=== PATIENT | male | born 1955 | race Caucasian/White ===

== ENCOUNTER 2017-06-08 09:26 | Outpatient (CLI) ==
[2015-06-07 12:42] VITALS: BMI 48.7
== END 2017-06-08 09:27 | disposition home or self-care (01) ==
LOC: LAB 09:26
PROVIDERS: ATTEND Nurse Practitioner Family
DX: J44.9 Chronic obstructive pulmonary disease, unspecified (principal); I10 Essential (primary) hypertension; E78.5 Hyperlipidemia, unspecified; E55.9 Vitamin D deficiency, unspecified; E66.9 Obesity, unspecified; Z12.5 Encounter for screening for malignant neoplasm of prostate
CPT/HCPCS: 36415; 80053; 80061; 82306; 84443; 85025

== ENCOUNTER 2018-01-15 23:42 | Emergency (ER) ==
[2018-01-15 23:54] VITALS: TEMP 98.9; BMI 44.7
[2018-01-16] MEDS ORDERED: DUONEB NEB STA (00:02)
--- NOTE | 2018-01-16 00:06 | ED.PDOC ---
General ED Provider: Dr. DAPHNE PRETTY Chief Complaint: Shortness of Air Stated Complaint: Patient states he has been short of breath for 3 days. Has a history COPD but quit smoking many years ago. Denies any chest pain. Time Seen by Physician: 00:05 Mode of Arrival: Wheelchair Information Source: Family Exam Limitations: Clinical condition Primary Care Provider: FRANCISCO COOPER Nursing and Triage Documentation Reviewed and Agree: Yes Does patient meet sepsis criteria?: Yes If yes, has appropriate treatment been initiated?: Yes System Inflammatory Response Syndrome: Pulse >90 BPM, Resp >20/Minute Sepsis Protocol: For patient's 13 years and over: Temp is 96.8 and below OR 101 and greater Pulse >90 BPM Resp >20/minute Acutely Altered Mental Status Are patient's symptoms suggestive of a new infection, such as: -Pneumonia -Skin, Soft Tissue -Endocarditis -UTI -Bone, Joint Infection -Implantable Device -Acute Abdominal Infection -Wound Infection -Meningitis -Blood Stream Catheter Infection -Unknown Respiratory Complaint Exam - Shortness of Air Complaint/Exam Onset/Duration: 3 days Symptoms Are: Still present Timing: Constant Initial Severity: Moderate Current Severity: Severe Character: Reports: Dyspnea at rest Aggravating: Reports: Movement Alleviating: Reports: None Associated Signs and Symptoms: Reports: Diaphoresis, Rapid breathing, Labored breathing. Denies: Chest pain, Edema Cardiac Risk Factors: Reports: CAD, Hypertension Home Oxygen Use: No Recent Stress Test: No Respiratory Distress: Moderate Stridor Present: No Tracheal Deviation: No Subcutaneous Emphysema: No Accessory Muscle Use: No Retractions: Not Present Diminished Breath Sounds: No Prolonged Expiratory Phase: No Unable to Speak Full Sentences: Yes Fatigue: No Leg Swelling: No Tamiko's Sign Present: No Grunting Respirations: No Kussmaul Respirations: No Differential Diagnoses: CHF, COPD Exacerbation Quality Indicator For Non-Traumatic Chest Pain/Syncope: EKG Performed Review of Systems - Review Of Systems Constitutional: Reports: Weakness, Loss of appetite Eyes: Reports: No symptoms Ears, Nose, Mouth, Throat: Reports: No symptoms Respiratory: Reports: Short of air Cardiac: Reports: Irregular heart rate, Palpitations. Denies: Chest pain GI: Reports: No symptoms : Reports: No symptoms Musculoskeletal: Reports: No symptoms Skin: Reports: No symptoms Neurological: Reports: Anxiety Endocrine: Reports: No symptoms Hematologic/Lymphatic: Reports: No symptoms All Other Systems: Reviewed and Negative Past Medical History - Past Medical History Previously Healthy: No Endocrine: Reports: None, Dyslipidemia Cardiovascular: Reports: Hypertension Respiratory: Reports: COPD, Asthma Hematological: Reports: None Gastrointestinal: Reports: None Genitourinary: Reports: Kidney stones Neuro/Psych: Reports: Migraine, Other (Neuropathy ) Musculoskeletal: Reports: None, Back Pain Cancer: Reports: None - Surgical History General Surgical History: Reports: Unknown - Family History Family History: Reports: None - Social History Smoking Status: Former smoker (60 pk year ) Hx Substance Use: No Alcohol Screening: None - Immunizations Tetanus Shot up to Date: No Physical Exam - Physical Exam Appearance: Ill-appearing, Obese Ill-appearing: Severe Neck: Supple Respiratory: Crackles Cardiovascular: Irregular rhythm, Tachycardia GI/: Soft, Nontender Musculoskeletal: Normal strength, ROM intact, No edema, No calf tenderness Skin: Warm, Dry, Normal color Neurological: Sensation intact, Motor intact, Cranial nerves intact, Alert, Oriented Psychiatric: Anxious Interpretation - Radiology Interpretation Radiology Interpretation By: Radiologist Radiology Results: Positive (chf) 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 Physician Notification - Case Discussed Physician Notified: Dr Alicea Time of Notification: 01:21 (accepted for transfer to [facility]) Critical Care Note - Critical Care Note Total Time (mins): 45 Comments: managing CHF , Atrial fibrillation with RVR Course - Course Hematology/Chemistry: 01/16/18 00:25 01/16/18 00:25 Orders, Labs, Meds: Lab Review 01/16/18 01/16/18 01/16/18 00:02 00:25 00:25 WBC 18.89 H RBC 4.97 Hgb 15.0 Hct 45.7 MCV 92.0 MCH 30.2 MCHC 32.8 RDW Coeff of Dang 14.8 Plt Count 281 Immature Gran % (Auto) 0.6 Neut % (Auto) 81.6 Lymph % (Auto) 9.2 L [place] % (Auto) 6.8 Eos % (Auto) 1.2 Baso % (Auto) 0.6 Immature Gran # (Auto) 0.1 Neut # (Auto) 15.4 H Lymph # (Auto) 1.7 [place] # (Auto) 1.3 Eos # (Auto) 0.2 Baso # (Auto) 0.1 Puncture Site Lrad O2 Saturation 85.0 L ABG pH 7.396 ABG pCO2 41.7 ABG pO2 51.0 L* ABG HCO3 25.6 ABG Total CO2 27 ABG Base Excess 1 Saul Test + FiO2 % 21.0 Sodium 138.8 Potassium 4.43 Chloride 103.4 Carbon Dioxide 27.4 Anion Gap 12.43 BUN 15.8 Creatinine 0.99 Estimated GFR (MDRD) 77.00 BUN/Creatinine Ratio 15.95 Glucose 134.2 H Lactic Acid Calcium 9.31 Total Bilirubin 1.09 AST 37.5 ALT 46.1 Alkaline Phosphatase 103.5 Total Creatine Kinase 69.1 Troponin I 0.050 NT-Pro-B Natriuret Pep 3990.000 H Total Protein 7.95 Albumin 4.23 Globulin 3.72 Albumin/Globulin Ratio 1.13 Procalcitonin 01/16/18 01/16/18 00:25 00:25 WBC RBC Hgb Hct MCV MCH MCHC RDW Coeff of Dang Plt Count Immature Gran % (Auto) Neut % (Auto) Lymph % (Auto) [place] % (Auto) Eos % (Auto) Baso % (Auto) Immature Gran # (Auto) Neut # (Auto) Lymph # (Auto) [place] # (Auto) Eos # (Auto) Baso # (Auto) Puncture Site O2 Saturation ABG pH ABG pCO2 ABG pO2 ABG HCO3 ABG Total CO2 ABG Base Excess Saul Test FiO2 % Sodium Potassium Chloride Carbon Dioxide Anion Gap BUN Creatinine Estimated GFR (MDRD) BUN/Creatinine Ratio Glucose Lactic Acid 1.92 Calcium Total Bilirubin AST ALT Alkaline Phosphatase Total Creatine Kinase Troponin I NT-Pro-B Natriuret Pep Total Protein Albumin Globulin Albumin/Globulin Ratio Procalcitonin < 0.05 Orders Category Date Time Status ABG DRAW REQUEST Stat CARDIO 01/16/18 00:02 Ordered EKG-(ED ONLY) Stat CARDIO 01/16/18 00:02 Ordered NEBULIZER TREATMENT Stat CARDIO 01/16/18 00:02 Ordered ED SOFTWARE QUALITY TESTER APPLIED .ONCE EMERGENCY 01/16/18 00:02 Active ED IV/MEDIPORT/POWERPORT .ONCE EMERGENCY 01/16/18 00:02 Active ABG Stat LAB 01/16/18 00:02 Completed BLOOD CULTURE (ED ONLY) Stat LAB 01/16/18 00:25 Received CBC W/ AUTO DIFF Stat LAB 01/16/18 00:25 Completed COMPREHENSIVE METABOLIC PANEL Stat LAB 01/16/18 00:25 Completed CREATINE KINASE Stat LAB 01/16/18 00:25 Completed LACTIC ACID Stat LAB 01/16/18 00:25 Completed NT-PROBNP Stat LAB 01/16/18 00:25 Completed PROCALCITONIN Stat LAB 01/16/18 00:25 Completed TROPONIN I Stat LAB 01/16/18 00:25 Completed 0.9 % Sodium Chloride [Saline Flush] MEDS 01/16/18 00:02 Ordered 1 syr IVF PRN PRN 0.9 % Sodium Chloride [Sodium Chloride] 100 ml MEDS 01/16/18 01:00 Ordered Diltiazem HCl Inj [Cardizem Inj] 125 mg IV 10 mg/hr Ceftriaxone Sodium [Rocephin] MEDS 01/16/18 01:04 Discontinued 1 gm .ROUTE .STK-MED ONE Ceftriaxone Sodium [Rocephin] 1 gm MEDS 01/16/18 00:42 Discontinued 0.9 % Sodium Chloride [Sodium Chloride] 50 ml IV ONCE Diltiazem HCl Inj [Cardizem Inj] MEDS 01/16/18 00:51 Discontinued 20 mg IVP ONCE STA Enoxaparin Sodium [Lovenox] MEDS 01/16/18 01:26 Discontinued 140 mg SUBCUT ONCE STA Furosemide [Lasix] MEDS 01/16/18 00:40 Discontinued 20 mg IVP ONCE STA Ipratropium/Albuterol Neb [Duoneb] MEDS 01/16/18 00:02 Discontinued 1 vial NEB ONCE STA Methylprednisolone Sod Succ/Pf [Solu-Medrol 125 mg] MEDS 01/16/18 00:38 Discontinued 125 mg IVP ONCE STA CHEST, 1V AP ONLY Stat RADS 01/16/18 00:02 Completed Medications Generic Name Dose Route Start Last Admin Trade Name Freq PRN Reason Stop Dose Admin Diltiazem HCl 125 mg/ Sodium 125 mls @ 10 mls/hr 01/16/18 01:00 Chloride IV .[id number] DEBORAH Protocol 10 MG/HR Sodium Chloride 1 syr 01/16/18 00:02 01/16/18 02:03 Saline Flush IVF 1 syr PRN PRN Administration To flush IV Discontinued Medications Generic Name Dose Route Start Last Admin Trade Name Freq PRN Reason Stop Dose Admin Albuterol/Ipratropium 1 vial 01/16/18 00:02 Duoneb NEB 01/16/18 00:03 ONCE STA Diltiazem HCl 20 mg 01/16/18 00:51 01/16/18 01:14 Cardizem Inj IVP 01/16/18 00:52 20 mg ONCE STA Administration Enoxaparin Sodium 140 mg 01/16/18 01:26 01/16/18 01:57 Lovenox SUBCUT 01/16/18 01:27 140 mg ONCE STA Administration Furosemide 20 mg 01/16/18 00:40 01/16/18 00:48 Lasix IVP 01/16/18 00:41 20 mg ONCE STA Administration Ceftriaxone Sodium 1 gm/ 50 mls @ 75 mls/hr 01/16/18 00:42 01/16/18 01:20 Sodium Chloride IV 01/16/18 01:21 75 mls/hr ONCE STA Administration Methylprednisolone Sodium Succinate 125 mg 01/16/18 00:38 01/16/18 00:45 Solu-Medrol 125 Mg IVP 01/16/18 00:39 125 mg ONCE STA Administration Vital Signs: Temp Pulse Resp BP Pulse Ox 01/15/18 23:42 98.9 F 111 H 36 H 81/47 L 83 L Departure - Departure Time of Disposition: :19 Disposition: TSF SHORT-TRM HOSP Discharge Problem: CHF (congestive heart failure) Qualifiers: Heart failure type: systolic Heart failure chronicity: acute Qualified Code(s) : I50.21 - Acute systolic (congestive) heart failure Atrial fibrillation Qualifiers: Atrial fibrillation type: persistent Qualified Code(s): I48.1 - Persistent atrial fibrillation Condition: Stable Pt referred to PMD for follow-up: Yes IPMP verified?: No Allergies/Adverse Reactions: Allergies azithromycin [From Zithromax] Adverse Reaction (Verified 01/15/18 23:54) ciprofloxacin [From Cipro] Adverse Reaction (Verified 01/15/18 23:54) ciprofloxacin HCl [From Cipro] Adverse Reaction (Verified 01/15/18 23:54) azithromycin Adverse Reaction (Uncoded 01/15/18 23:54) ciprofloxacin Adverse Reaction (Uncoded 01/15/18 23:54) ciprofloxacin HCl Adverse Reaction (Uncoded 01/15/18 23:54) Home Medications: Ambulatory Orders Byers-3 Fatty Acids [Fish Oil] 1,000 mg PO BID 04/12/13 Multivitamin 1 PO DAILY 08/04/14 Hydrocodone/Acetaminophen [Drumore 10-325 Tablet] 1 each PO Q6HR PRN #20 tablet
--- NOTE | 2018-01-16 00:36 | DI ---
Exam: Chest one-view History: Shortness of breath FINDINGS: The exam is technically inhibited by light radiographic portable technique and body habitu s limitations. The pulmonary vasculature is prominent. Pleural effusions are suspected left greater than right. No obvious consolidative opacities. No acute chest wall abnormality. Impression: Vascular congestion and pleural fluid suspect for congestive heart failure.
[2018-01-16] MEDS ORDERED: SOLU-MEDROL 125 MG IVP STA (00:38)
[2018-01-16] MEDS ORDERED: LASIX IVP STA (00:40)
[2018-01-16] MEDS ORDERED: ROCEPHIN 1 GM in SODIUM CHLORIDE 50 ML IV STA (00:42)
[2018-01-16] MEDS ORDERED: CARDIZEM INJ IVP STA (00:51)
[2018-01-16] MEDS ORDERED: CARDIZEM INJ 125 MG in SODIUM CHLORIDE 100 ML IV SCH (01:00)
[2018-01-16] MEDS ORDERED: ROCEPHIN ONE (01:04)
[2018-01-16] MEDS ORDERED: LOVENOX SUBCUT STA (01:26)
[2018-01-16 02:30] VITALS: BP 136/87
== END 2018-01-16 03:45 | disposition short-term general hospital (02) ==
LOC: ED 23:42
DX: I50.21 Acute systolic (congestive) heart failure (principal); I48.1 Persistent atrial fibrillation; I25.10 Atherosclerotic heart disease of native coronary artery without angina pectoris; I10 Essential (primary) hypertension; J44.9 Chronic obstructive pulmonary disease, unspecified; E78.5 Hyperlipidemia, unspecified; R06.02 Shortness of breath
CPT/HCPCS: 36415; 80053; 82550; 82803; 83605; 83880; 84145; 84484; 85025; 87040; 93005; 93010; 94640; 96365; 96367; 96372; 96375; 96376; 99285